=== PATIENT | male | born 1970 | race Caucasian/White ===

== ENCOUNTER 2017-10-07 17:04 | Emergency (ER) | payer OTHER, MEDICAID ==
[~2017-10-07] VITALS: Ht 188 cm; Wt 104.5 kg
[~2017-10-07 17:04] MED LIST: ALBU18HF INH; ALBU8.5H8; BUDE10.22 INH; CEPH-376 PO; DOXY100T PO; METF500T4 PO; NAPR-856 PO; OXYC5TAB3 PO; PANT40TA3 PO
[2017-10-07] MEDS ORDERED: SODIUM CHLORIDE FLUSH 10ML SYR IVF ONE (18:00)
[2017-10-07 18:30] LABS: BASOPHILS # (AUTO) 0.02 x10^3/uL (0-0.1); BASOPHILS % (AUTO) 0 % (0-1); EOSINOPHILS # (AUTO) 0.05 x10^3/uL (0-0.4); EOSINOPHILS % (AUTO) 1 % (1-7); LYMPHOCYTES # (AUTO) 1.26 x10^3/uL (1-3.4); LYMPHOCYTES % (AUTO) 13 % (22-44); MD NO; MEAN CORPUSCULAR HEMOGLOBIN 27.5 pg (27.5-34.5); MEAN CORPUSCULAR HGB CONC 33.1 g/dL (33.2-36.2); MEAN CORPUSCULAR VOLUME 82.9 fL (81-97); MEAN PLATELET VOLUME 9.9 fL (7.4-10.4); MONOCYTES # (AUTO) 0.33 x10^3/uL (0.2-0.8); MONOCYTES % (AUTO) 3 % (2-9); NEUTROPHILS % (AUTO) 83 % (42-75); PLATELET COUNT 247 x10^3/uL (130-400); RED BLOOD COUNT 6.46 x10^6/uL (4.38-5.82); RED CELL DISTRIBUTION WIDTH 13.2 % (9.4-14.8)
[2017-10-07 18:40] LABS: ALBUMIN 3.5 g/dL (3.4-5.0); ANION GAP 7 mmol/L (5-15); CHLORIDE 100 mmol/L (98-107)
[2017-10-07] MEDS ORDERED: MULT1TAB60 PO (18:42)
[2017-10-07] MEDS ORDERED: THIA100T10 PO (18:42)
[2017-10-07] MEDS ORDERED: LOPE2CAP PO (18:42)
[2017-10-07] MEDS ORDERED: [UNRECOGNIZED DRUG - OTHER] (18:42)
[2017-10-07] MEDS ORDERED: DICY20TA3 PO (18:42)
[2017-10-07] MEDS ORDERED: ONDA4TAB12 PO (18:42)
[2017-10-07] MEDS ORDERED: CLIN150C14 PO (18:42)
[2017-10-07] MEDS ORDERED: IBUP-1222 PO (18:42)
[2017-10-07] MEDS ORDERED: MAG360OR26 PO (18:42)
[2017-10-07 18:43] LABS: ALANINE AMINOTRANSFERASE 17 U/L (12-78); ALKALINE PHOSPHATASE 45 U/L (45-117); BILIRUBIN,TOTAL 0.8 mg/dL (0.2-1.0); CREATININE 0.82 mg/dL (0.7-1.3); TOTAL PROTEIN 7.4 g/dL (6.4-8.2)
[2017-10-07 19:35] LABS: MICROSCOPIC AUTO
[2017-10-07 19:36] LABS: CULTURE INDICATED? NO
[2017-10-07] MEDS ORDERED: KETOROLAC 30 MG/1 ML ONE (20:04)
[2017-10-07] MEDS ORDERED: KETOROLAC 30 MG/1 ML IVPush ONE (20:30)
[2017-10-07 21:19] VITALS: BP 167/107
== END 2017-10-07 21:40 | disposition home or self-care (01) ==
LOC: ED 21:31
DX: F11.20 Opioid dependence, uncomplicated (principal); K40.91 Unilateral inguinal hernia, without obstruction or gangrene, recurrent; K43.9 Ventral hernia without obstruction or gangrene
CPT/HCPCS: 36415; 76870; 80053; 81001; 83605; 85025; 93005; 93975; 96374; 99285; J1885

== ENCOUNTER 2019-04-08 01:02 | Emergency (ER) | payer MEDICAID, OTHER ==
[~2019-04-08] VITALS: Ht 188 cm; Wt 90.9 kg
[~2019-04-08 01:02] MED LIST changes: +CLIN150C14 PO; +DICY20TA3 PO; +IBUP-1222 PO; +LOPE2CAP PO; +MAG360OR26 PO; +METF500T17 PO; -METF500T4 PO; +MULT1TAB60 PO; +ONDA4TAB12 PO; +THIA100T10 PO; +[UNRECOGNIZED DRUG - OTHER]
[2019-04-08] MEDS ORDERED: ONDANSETRON 2MG/ML, 2ML IVPush ONE (02:00)
[2019-04-08] MEDS ORDERED: SODIUM CHLORIDE FLUSH 10ML SYR IVF ONE (02:00)
[2019-04-08 02:11] LABS: BASOPHILS # (AUTO) 0.04 x10^3/uL (0-0.1); BASOPHILS % (AUTO) 0 % (0-1); EOSINOPHILS # (AUTO) 0.13 x10^3/uL (0-0.4); EOSINOPHILS % (AUTO) 1 % (1-7); LYMPHOCYTES # (AUTO) 1.82 x10^3/uL (1-3.4); LYMPHOCYTES % (AUTO) 14 % (22-44); MD NO; MEAN CORPUSCULAR HGB CONC 33.4 g/dL (33.2-36.2); MEAN CORPUSCULAR VOLUME 86.9 fL (81-97); MEAN PLATELET VOLUME 8.3 fL (7.4-10.4); MONOCYTES # (AUTO) 0.45 x10^3/uL (0.2-0.8); MONOCYTES % (AUTO) 3 % (2-9); NEUTROPHILS % (AUTO) 82 % (42-75); PLATELET COUNT 273 x10^3/uL (130-400); RED BLOOD COUNT 5.24 x10^6/uL (4.38-5.82); RED CELL DISTRIBUTION WIDTH 13.2 % (9.4-14.8)
[2019-04-08] MEDS ORDERED: ONDANSETRON 2MG/ML, 2ML ONE (02:17)
[2019-04-08] MEDS ORDERED: HYDROmorphone 1 MG/ML, 1ML VIAL ONE (02:17)
[2019-04-08 02:19] LABS: ALANINE AMINOTRANSFERASE 19 U/L (12-78); ALBUMIN 3.9 g/dL (3.4-5.0); ANION GAP 6 mmol/L (5-15); CALCIUM 9.4 mg/dL (8.5-10.1); CHLORIDE 111 mmol/L (98-107); CREATININE 0.79 mg/dL (0.7-1.3)
[2019-04-08] MEDS: HYDROmorphone 2 MG/ML, 1ML IVPush PRN ×2 (02:19→02:51)
[2019-04-08 02:22] LABS: ALKALINE PHOSPHATASE 50 U/L (45-117); BILIRUBIN,TOTAL 0.5 mg/dL (0.2-1.0); TOTAL PROTEIN 7.7 g/dL (6.4-8.2)
--- NOTE | 2019-04-08 02:28 | NUR ---
PT WITH IV STARTED AND MEDICATED ORDERED GIVEN A WARM BLANKET AND TAKEN TO CT SCAN.
[2019-04-08] MEDS ORDERED: HYDROmorphone 2 MG/ML, 1ML ONE (02:47)
--- NOTE | 2019-04-08 03:49 | NUR ---
LATE CHARTING D/T SYSTEM DOWN TIME. PT REPORTS DECREASED PAIN, AWAITING IMAGING AND UA RESULTS.
[2019-04-08 04:31] LABS: MICROSCOPIC AUTO
[2019-04-08 04:34] LABS: CULTURE INDICATED? NO
[2019-04-08 04:37] LABS: AMPHETAMINE SCREEN, URINE Negative (Negative); BARBITURATE SCREEN, URINE Negative (Negative); BENZODIAZEPINE SCREEN, URINE Negative (Negative); CANNABINOID SCREEN, URINE Positive (Negative); COCAINE SCREEN, URINE Negative (Negative); METHADONE SCREEN, URINE Negative (Negative); OPIATE SCREEN, URINE Positive (Negative)
[2019-04-08 05:24] VITALS: BP 122/84
== END 2019-04-08 05:27 | disposition home or self-care (01) ==
LOC: ED 05:00
DX: R10.84 Generalized abdominal pain (principal); J45.909 Unspecified asthma, uncomplicated; Z87.891 Personal history of nicotine dependence
CPT/HCPCS: 36415; 74176; 80053; 80307; 81001; 83690; 85025; 96374; 96375; 96376; 99284; J1170; J2405